=== PATIENT | male | born 1960 | race Caucasian/White ===

== ENCOUNTER → 2016-07-29 | Outpatient (CLI) | payer OTHER ==
[2016-07-29 12:41] LABS: CHOLESTEROL/HDL RATIO 3.5
--- NOTE | 2016-08-01 08:27 | CODING QUERY NO DIAGNOSIS ---
TREATMENT RENDERED WITHOUT A DIAGNOSIS Dr. Layne, To promote full compliance with coding requirements relating to patient care, physician participation is requested in all cases of glove operator uncertainty. Please assist us with providing a diagnosis/symptom for the test(s) below: A diagnosis/symptom was not documented on your Order. A valid diagnosis/symptom is required to bill all insurances. Please remember that we are unable to code a diagnosis of rule out, probable, possible, questionable, or suspected. Tests that require a diagnosis: * SGOT DIAGNOSIS: * CPK DIAGNOSIS: * SGPT (ALT) DIAGNOSIS: * LIPID PANEL DIAGNOSIS: DATE OF SERVICE: 07/29/16 Provider Signature: Date: Thank you Mendoza Sanchez [facility] Information Management Once completed, please kindly fax back to [phone] For questions please call [phone]
== END | disposition home or self-care (01) ==
LOC: C.LAB 10:10
DX: E78.5 Hyperlipidemia, unspecified (principal)

== ENCOUNTER → 2016-11-17 | Outpatient (CLI) | payer OTHER ==
--- NOTE | 2016-11-17 08:55 | DIAGNOSTIC IMAGING REPORT ---
CHEST 2 VIEWS ROUTINE HISTORY: 56 years-old Male ORTHOSTATIC INTOLERANCE acute dizziness for one month COMPARISON: None available TECHNIQUE: Frontal and lateral views of the chest FINDINGS: Cardiomediastinal and hilar silhouettes are within normal limits. There is atherosclerosis of the aorta. No pneumothorax, pleural effusion, focal airspace consolidation or overt pulmonary edema. Bones are grossly intact. There has been prior resection of the distal left clavicle. IMPRESSION: No acute cardiopulmonary process. The above report was generated using voice recognition software. It may contain grammatical, syntax or spelling errors. Electronically signed by: Gurdeep Lay M.D. 11/17/2016 8:54 AM Dictated Date/Time: 11/17/2016 8:53 AM
== END | disposition home or self-care (01) ==
LOC: C.LAB 08:19
DX: R68.89 Other general symptoms and signs (principal); R94.31 Abnormal electrocardiogram [ECG] [EKG]